=== PATIENT | male | born 1985 | race Caucasian/White ===

== ENCOUNTER 2017-05-23 07:43 | Emergency (ER) | payer SELFPAY ==
[2017-05-23] MEDS ORDERED: Ondansetron HCl/PF 4 MG/2 ML Vial ONE (08:08)
[2017-05-23] MEDS ORDERED: Acetaminophen 500 MG TAB ONE (08:08)
== END 2017-05-23 09:01 | disposition home or self-care (01) ==
LOC: ERS 07:43
DX: E86.0 Dehydration (principal); J06.9 Acute upper respiratory infection, unspecified; F17.210 Nicotine dependence, cigarettes, uncomplicated
CPT/HCPCS: 96361; 96374; J2405

== ENCOUNTER 2017-11-17 20:13 | Emergency (ER) | payer SELFPAY | END 2017-11-17 20:40 | disposition home or self-care (01) | LOC: ERS 20:13 | DX: B00.9 Herpesviral infection, unspecified (principal); F17.210 Nicotine dependence, cigarettes, uncomplicated | CPT/HCPCS: 99282 ==

== ENCOUNTER 2018-04-30 15:35 | Emergency (ER) | payer SELFPAY | END 2018-04-30 17:32 | disposition home or self-care (01) | LOC: ERS 15:35 | DX: J06.9 Acute upper respiratory infection, unspecified (principal); F17.210 Nicotine dependence, cigarettes, uncomplicated | CPT/HCPCS: 87804; 99283 ==

== ENCOUNTER 2018-11-24 10:23 | Emergency (ER) | payer SELFPAY | END 2018-11-24 11:13 | disposition home or self-care (01) | LOC: ERS 10:23 | DX: K04.7 Periapical abscess without sinus (principal); F17.210 Nicotine dependence, cigarettes, uncomplicated | CPT/HCPCS: 99283 ==

== ENCOUNTER 2018-12-30 19:58 | Emergency (ER) | payer SELFPAY ==
[2018-12-30] MEDS ORDERED: Dexamethasone 4 mg/ml Vial ONE (20:32)
== END 2018-12-30 21:26 | disposition home or self-care (01) ==
LOC: ERS 19:58
DX: J02.9 Acute pharyngitis, unspecified (principal); F17.210 Nicotine dependence, cigarettes, uncomplicated
CPT/HCPCS: 87081; 87430; 96372; 99283; J1100

== ENCOUNTER 2019-04-01 12:33 | Emergency (ER) | payer SELFPAY | END 2019-04-01 16:34 | disposition left against medical advice (07) | LOC: ERS 12:33 | DX: Z53.21 Procedure and treatment not carried out due to patient leaving prior to being seen by health care provider (principal) ==

== ENCOUNTER 2019-04-07 11:22 | Emergency (ER) | payer SELFPAY | END 2019-04-07 12:03 | disposition home or self-care (01) | LOC: ERS 11:22 | DX: J11.1 Influenza due to unidentified influenza virus with other respiratory manifestations (principal); F17.210 Nicotine dependence, cigarettes, uncomplicated | CPT/HCPCS: 99283 ==

== ENCOUNTER 2020-06-01 09:41 | Emergency (ER) | payer SELFPAY ==
[2020-06-01 11:06] LABS: #Basophils 0.1 thou/uL (0.0-0.2); #Eosinphils 0.1 thou/uL (0.0-0.7); #Lymphocytes 1.9 thou/uL (1.20-3.40); #Monocytes 0.9 thou/uL (0.11-0.59); #Neutrophils 12.5 thou/uL (1.40-6.50); %Basophils 0.6 % (0.0-1.0); %Eosinophils 0.9 % (0.0-10.0); %Lymphocytes 12.3 % (21.0-51.0); %Neutrophils 80.2 % (42.0-75.0); Hemoglobin 16.5 g/dL (14.0-18.0); Mean Corpuscular Hemoglobin 27.7 pg (27.0-31.0); Mean Platelet Volume 7.4 fL (7.4-10.4); Platelet Count 300 thou/uL (130-400); RBC Distribution Width 11.4 % (11.5-14.5); Red Blood Cell (RBC) Count 5.96 mill/uL (4.70-6.10); White Blood Cell (WBC) Count 15.6 thou/uL (4.8-10.8)
[2020-06-01 11:21] LABS: ALT (SGPT) 37 U/L (8-55); AST (SGOT) 18 U/L (5-34); Albumin 4.9 g/dL (3.5-5.0); Alkaline Phosphatase 63 U/L (40-110); Anion Gap 14 mmol/L (10-20); BUN (Urea Nitrogen) 9 mg/dL (8.9-20.6); Bilirubin, Total 0.8 mg/dL (0.2-1.2); Calc. Creatinine Clearance 0 mL/min (70-130); Calcium 10.3 mg/dL (7.8-10.44); Carbon Dioxide 28 mmol/L (22-29); Chloride 99 mmol/L (98-107); Globulin 3.7 g/dL (2.4-3.5); Glucose 101 mg/dL (70-105); Lipase 8 U/L (8-78); Potassium 4.4 mmol/L (3.5-5.1); Protein, Total 8.6 g/dL (6.0-8.3); Sodium 137 mmol/L (136-145)
[2020-06-01 12:32] LABS: Bilirubin Negative (Negative); Blood, Urine Negative (Negative); Clarity Clear (Clear); Glucose, Urine (Dipstick) Normal (Negative); Ketone, Urine Trace mg/dL (Negative); Leukocyte Negative Leu/uL (Negative); Nitrite Negative (Negative); Protein, Urine (Dipstick) Negative (Neg-Trace); Specific Gravity, Urine 1.013 (1.002-1.036); Urobilinogen Normal mg/dL (Less than 2); pH, Urine 6.5 (5.0-9.0)
[2020-06-01 18:03] LABS: SARS-CoV-2 PCR by NAA Not Detected (NotDetected)
== END 2020-06-01 13:17 | disposition home or self-care (01) ==
LOC: ERS 09:41
DX: B34.9 Viral infection, unspecified (principal); Z20.822 Contact with and (suspected) exposure to COVID-19; F17.210 Nicotine dependence, cigarettes, uncomplicated
CPT/HCPCS: 71045; 80053; 81003; 83690; 85025; 87635; 93005; U0003; U0005

== ENCOUNTER 2020-09-10 15:28 | Emergency (ER) | payer OTHER, SELFPAY | END 2020-09-10 17:16 | disposition home or self-care (01) | LOC: ERS 15:28 | DX: L23.7 Allergic contact dermatitis due to plants, except food (principal); F17.210 Nicotine dependence, cigarettes, uncomplicated | CPT/HCPCS: 99282 ==